=== PATIENT | male | born 1955 | race Caucasian/White ===

== ENCOUNTER 2017-06-27 23:43 | Emergency (ER) | payer MEDICARE, SELFPAY ==
[2017-06-27 23:44] VITALS: BP 143/79; PULSE 73; RESP 16; TEMP 36.7; O2SAT 99; BMI 28.6
--- NOTE | 2017-06-27 23:55 | EKG12_ITS ---
Test Reason : CP Blood Pressure : / mmHG Vent. Rate : 069 BPM Atrial Rate : 069 BPM P-R Int : 158 ms QRS Dur : 078 ms QT Int : 372 ms P-R-T Axes : 066 004 020 degrees QTc Int : 398 ms Normal sinus rhythm Normal ECG Confirmed by MARÍA OAKES, ELIZABETH ([id number]), editor house organ TRIXIE BAUTISTA ([id number] on 07/02/2017 2:48:03 PM Referred By: DR HAYS Confirmed By:ELIZABETH DANIEL MD
--- NOTE | 2017-06-27 23:55 | RAD_ITS ---
STUDY: X-RAY CHEST REASON FOR EXAM: Male, 61 years old. Chest pain. TECHNIQUE: Single AP portable view of the chest. COMPARISON: 03/11/2013. FINDINGS: The lungs are clear and expanded. There is no demonstrated pleural abnormality. Normal size heart. Normal mediastinum and bahman. Normal visualized pulmonary arteries. Normal visualized aortic arch and descending thoracic aorta. Normal visualized thoracic spine. Normal visualized ribs, clavicles, and shoulders. There is no demonstrated abnormality of the visualized soft tissue structures of the upper abdomen. RAD/Chest 1 View (Portable) IMPRESSION: Normal x-ray examination of the chest. Electronically Signed: Shahbaz Padilla MD at 0:44 EST Tel , Service support ,
[2017-06-28] MEDS: Aspirin 81 MG TAB.CHEW 324 MG PO (00:08)
[2017-06-28] MEDS: 0.9% Normal Saline 1,000 ML 150 ML IV (00:11)
[2017-06-28 00:12] LABS: Absolute Neutrophil Count 3.4 X10^3/uL (2.0-7.7); Basophil# 0.06 X10^3/uL; Basophil% 0.8 % (0-1); Eosinophil# 0.22 X10^3/uL; Hematocrit 42.2 % (40-54); Hemoglobin 14.7 g/dl (13.0-16.5); Lymphocyte % 39.5 % (19-41); Mean Corp Hgb Conc 34.8 g/gl (32-36); Mean Corpuscular Hgb 32.2 pg (27.0-32.0); Mean Corpuscular Volume 92.5 fL (80-94); Mean Platelet Vol. 9.7 fl (6.2-12.0); Monocyte# 0.72 X10^3/uL; Monocyte% 9.8 % (0-10); Neutrophil # 3.44 X10^3/uL (2.7-7.7); Neutrophil % 46.8 % (47-70); Platelet Count 259 K/mm3 (150-450); RBC Distribution Width CV 11.8 % (11.6-14.6); RBC Distribution Width SD 39.8 fl (35.1-43.9); Red Blood Count 4.56 M/mm3 (4.6-6.2); White Blood Count 7.4 K/mm3 (4.4-11.0)
[2017-06-28 00:13] VITALS: O2SAT 98
[2017-06-28 00:13] LABS: POSITIVE COUNT NO; POSITIVE DIFFERENTIAL NO; POSITIVE MORPHOLOGY NO
[2017-06-28 00:24] LABS: Anion Gap 6 (5-15); BUN 21 mg/dL (7-18); BUN/Creat Ratio 22.9 RATIO (10-20); Calcium,Total 8.4 mg/dL (8.5-10.1); Chloride 111 mmol/L (98-107); Creatinine, Serum 0.92 mg/dL (0.70-1.30); EST Glomerular Filtration Rate 88 mL/min (>60); Est Glom Filt Rate - Afr Amer 107 mL/min (>60); Estimated Creatinine Clearance 75.13 ml/min; Glucose 111 mg/dL (74-106); Potassium 4.1 mmol/L (3.5-5.1); Sodium Level 144 mmol/L (136-145)
[2017-06-28 00:25] LABS: D-Dimer Quantitative (DVT/PE) < 0.27 FEU/ug/m (0.27-0.49)
--- NOTE | 2017-06-28 00:56 | ED.DCSUM_ITS ---
- ER Visit Summary Date of Service: 06/28/17 Chief Complaint: Chest pain History of Present Illness: The patient is a 61 M who has not been feeling well for the last 1-1/2-2 weeks. He has had cough and congestion. Today he had chest pain all day, right midportion of his chest. Pain is worse with a deep breath. He is bringing up green sputum with his cough. He had recent fever but none today. Patient denies significant past cardiac history. He had a stress test approximately 2 years ago that was normal. Physical Examination: Vital signs are unremarkable. Patient is in no acute distress and speaking full sentences. Head neck examination is normal. Heart is regular rate and rhythm. Lung sounds are clear. He does have right mid chest wall tenderness. There is no crepitus. Abdomen is soft nontender. Lower extent examination was no calf tenderness or edema. Test Results: EKG is sinus at 69 with no sign of acute ischemia. Portable chest x-ray is normal. CBC and chemistry studies are grossly unremarkable. Troponin and d-dimer are both negative. Emergency Department Course and Treatment: Patient was given aspirin here while awaiting test results. On repeat evaluation he is resting comfortably. Had essentially 2 weeks of symptoms. He will be treated with a course of Zithromax. Treatment Plan: [] Disposition: Discharge Impression: 1. Bronchitis 2. Noncardiac chest pain This note was generated with [employer] dictation software. It may contain incorrect words, spelling, and punctuation that were not noted in review of the chart prior to signing ED Disposition - Plan for ED Patient: Disposition: Home or Assisted Living Chief Complaint: Chest Pain Instructions: Acute Bronchitis, ED Chest Pain NonCardiac Prescriptions: Azithromycin [Zithromax] 250 mg PO DAILY #4 tablet Referrals: Gerald Franklin MD [Primary Care Provider] - 1 Week if not improving
[2017-06-28 01:03] VITALS: BP 119/92; PULSE 71; RESP 15; O2SAT 99
[2017-06-28] MEDS: Azithromycin 250 MG Tablet 500 MG PO (01:06)
== END 2017-06-28 01:09 | disposition home or self-care (01) ==
PROVIDERS: Emergency Provider Emergency Medicine; Family Provider Family Medicine; PCP Family Medicine
DX: J40 Bronchitis, not specified as acute or chronic (principal); R07.89 Other chest pain; Z72.0 Tobacco use; F32.9 Major depressive disorder, single episode, unspecified
CPT/HCPCS: 71045; 80048; 84484; 85025; 85379; 93005; 96360; 99285; J7030

== ENCOUNTER 2018-05-04 18:10 | Emergency (ER) | payer MEDICARE, SELFPAY ==
[2018-05-04 18:11] VITALS: BP 146/81; PULSE 96; RESP 16; TEMP 36.2; O2SAT 100; BMI 25.9
--- NOTE | 2018-05-04 19:52 | ED.VISSUMM ---
- ER Visit Summary Date of Service: 05/04/18 Chief Complaint: Back pain and right shoulder pain History of Present Illness: The patient is a 62 M with just over 1 week history of low back pain and right shoulder pain. He was seen in [place] emergency room on April 26 and given prednisone and [place]. He saw Dr. Franklin or someone in his office on April 30 for follow-up. He is given prescription for naproxen and along with gabapentin. Patient reports no significant relief. He believes he has a torn rotator cuff in the right shoulder is requesting referral to an orthopedic physician. Physical Examination: Vital signs unremarkable. Patient sitting in bedside chair no acute distress. Head and neck examination is unremarkable. Heart is regular rate and rhythm. Lung sounds are clear. Abdomen is soft and nontender. Back examination reveals focal tenderness over the lower cervical paraspinals and across the right scapula. He also has reproducible tenderness in the lumbar bilateral paraspinal muscles. Neuro exam is unremarkable with good range of motion throughout. Test Results: [] Emergency Department Course and Treatment: X-rays reports were able to be reviewed from [place]. Patient will be given prednisone with a longer taper. He will be given a home pack of [place] tonight as he did drive himself to the emergency room. He can contact his primary care physician tomorrow morning for further pain medication. He will be referred to Dr. Iggy Hines, on-call for orthopedics for follow-up as well. Treatment Plan: [] Disposition: Discharge Impression: 1. Cervical radiculopathy 2. Lumbar paraspinal strain This note was generated with [employer] dictation software. It may contain incorrect words, spelling, and punctuation that were not noted in review of the chart prior to signing ED Disposition - Plan for ED Patient: Chief Complaint: Back Referrals: Gerald Franklin MD [Primary Care Provider] -
--- NOTE | 2018-05-04 19:54 | ED.DEP ---
ED Disposition - Plan for ED Patient: Disposition: Home or Assisted Living Chief Complaint: Back Instructions: ED Neck Back Pain General Prescriptions: Prednisone 10 mg PO DAILY #63 tablet Referrals: Gerald Franklin MD [Primary Care Provider] - As soon as possible Iggy Hines MD [STAFF PHYSICIAN] - As soon as possible
[2018-05-04] MEDS: HYDROcodone Bitartrate/Apap 5/325 Tablet PO (20:10)
[2018-05-04 20:12] VITALS: BP 142/80; PULSE 84; RESP 16; O2SAT 96
== END 2018-05-04 20:13 | disposition home or self-care (01) ==
PROVIDERS: Emergency Provider Emergency Medicine; Family Provider Family Medicine; PCP Family Medicine
DX: M54.12 Radiculopathy, cervical region (principal); S39.012A Strain of muscle, fascia and tendon of lower back, initial encounter; X58.XXXA Exposure to other specified factors, initial encounter; Y93.9 Activity, unspecified; Y92.9 Unspecified place or not applicable; Y99.9 Unspecified external cause status; Z72.0 Tobacco use; Z86.73 Personal history of transient ischemic attack (TIA), and cerebral infarction without residual deficits; Z87.442 Personal history of urinary calculi
CPT/HCPCS: 99282

== ENCOUNTER 2023-06-24 13:31 | Emergency (ER) | payer MEDICARE, SELFPAY ==
[2023-06-24 13:33] VITALS: BP 140/111; PULSE 115; RESP 18; TEMP 36.4; O2SAT 100; BMI 23.8
--- NOTE | 2023-06-24 15:22 | CT_ITS ---
EXAM: CT CERVICAL SPINE WITHOUT INTRAVENOUS CONTRAST CLINICAL INDICATION: chronic pain TECHNIQUE: Helically acquired images were obtained of the cervical spine without intravenous contrast. 2D reformatted images were reviewed. This CT exam was performed using one or more of the following dose reduction techniques: automated exposure control, adjustment of the mA and/or kV according to patient size, and/or use of iterative reconstruction technique. COMPARISON: No relevant prior studies available. FINDINGS: VERTEBRAE: See below. DISCS/SPINAL CANAL/NEURAL FORAMINA: There is disc space narrowing at C5-6. There is bilateral bony neural foraminal narrowing at C5-6. There is bilateral bony neural foraminal narrowing at C6-7. SOFT TISSUES: Unremarkable. No prevertebral soft tissue swelling. LYMPH NODES: Unremarkable. No cervical adenopathy. LUNG APICES: Unremarkable as visualized. Clear. CT/Spine Cervical without Contras IMPRESSION: 1. No acute osseous abnormalities of the cervical spine. 2. Degenerative changes with disc space narrowing and bony neural foraminal narrowing in the lower cervical spine. If indicated further evaluation with MRI may be beneficial. Electronically Signed: Tremaine Gonzalez MD at 16:13 EST ,
--- NOTE | 2023-06-24 15:23 | ED.VIS.BACK ---
HPI History of Present Illness Chief Complaint: Other, Pain/Inj Narrative Narrative: 67-year-old male past medical history of chronic neck pain states he has been seen by pain management at the [facility] and is going through hoops to get injections into his neck. He states he saw his management psychologist today, and someone told him that he should come to the emergency department because of his chronic neck pain. He states that he has had pain for over 2 years. He denies any fevers or chills. He gets pain radiating down both arms, and sometimes his fingertips go numb. This is typical of his chronic neck pain. States he is having problems with his memory as well, and cannot remember what he takes for pain, but thinks that some sort of muscle relaxer . PFSH PFSH Home Medications prednisone 10 mg tablet 10 mg PO DAILY #63 tabs 05/04/18 [Rx Last Taken Unknown] Allergy/AdvReac Type Severity Reaction Status Date / Time No Known Allergies Allergy Verified 06/24/23 13:32 Social History Smoking Status: Current every day smoker tobacco type: cigarettes ROS ROS ED ROS Narrative Constitutional: No fever, no chills. HEENT: No sore throat. Positive chronic neck pain. No loss of vision. No rhinorrhea. Cardiovascular: No chest pain. No palpitations. No pedal edema. Respiratory: No cough, no shortness of breath. Abdominal: No abdominal pain. No nausea. No vomiting. Genitourinary: No dysuria. No hematuria. Musculoskeletal: No myalgias. No arthralgias. Neurologic: No headaches. No dizziness. No lightheadedness. Intermittent numbness of bilateral fingers. Skin: No rash. No change in color. Psychiatric: No depression. No anxiety. EXAM Physical Exam Narrative Exam Narrative: Afebrile. Vital signs noted. HEENT: Normocephalic. Atraumatic. PERRL, EOMI. Neck soft and supple. No point tenderness or step off. Cardiovascular: Regular rate and rhythm. No murmurs, rubs, or gallops appreciated. Respiratory: No tachypnea. Lungs clear to auscultation bilaterally. Gastrointestinal: Abdomen soft, nontender, with normoactive bowel sounds. No rebound or guarding. Neurological: Awake. Alert. Nonfocal, nonlateralizing. Able to raise arms above head without difficulty. Skin: No rash. Normal color. No pallor. Musculoskeletal: No pedal edema. Full range of motion extremities. Palpable radial pulses bilaterally. Const Vital Signs: 06/24/23 13:33 06/24/23 16:11 Temperature 97.5 F L Temperature Source Temporal Pulse Rate 115 H 67 Respiratory Rate 18 16 Blood Pressure 140/111 H 150/78 H Blood Pressure Mean 120 102 Pulse Ox 100 100 Oxygen Delivery Method Room Air MDM MDM MDM Narrative Medical decision making narrative: I reviewed the patient's prior records. He has a longstanding history of chronic neck and low back pain. He has with him a piece of paper from pain management telling him to bring his records and any imaging of his neck for injections, and there is also a pulmonology appointment reportedly scheduled. I think that is where he was today. He states he was told by the RN at the management psychologist office that they thought he should come to the emergency department because he was having exacerbation of his chronic numbness. I do not feel that the patient's symptoms are strokelike, nor do I feel that he requires an emergent MRI. These are all longstanding problems. I did discuss with him reimaging his neck with CT as he states that has not happened for years. I reviewed the CT imaging of the cervical spine, and the radiology report which shows no acute osseous abnormalities or fracture, there are degenerative changes and disc space narrowing and bony neural foraminal narrowing in the lower cervical spine. I do not feel that he requires emergent MRI at this time. Additionally, I do not feel that narcotic pain medications are indicated as he is enrolled in pain management and he states he is supposed to have injections next week. He will be given a copy of his imaging to take with him to the pain management physician. Patient became upset, and left his room but waited in the waiting room for his disc and discharge papers. Disposition is discharged home in stable condition. Radiography Diagnostic Testing: Clinical Impression(s) from Imaging Studies Cervical Spine CT 06/24/23 15:22 IMPRESSION: 1. No acute osseous abnormalities of the cervical spine. 2. Degenerative changes with disc space narrowing and bony neural foraminal narrowing in the lower cervical spine. If indicated further evaluation with MRI may be beneficial. Electronically Signed: Tremaine Gonzalez MD at 16:13 EST , Discharge Plan Triage Chief Complaint: Other, Pain/Inj Other Complaint: Back ED Provider: Doroteo Calloway Dx/Rx/DC Orders Clinical Impression: Degenerative joint disease of cervical spine, Chronic neck pain Instructions: ED Chronic Pain, ED Radiculopathy, Cervical Prescriptions: No Action prednisone 10 MG tablet 10 mg PO DAILY Qty: 63 0RF Rx Instructions: 60 mg p.o. daily ?3 days, 50 mg p.o. daily ?3 days, 40 mg p.o. daily ?3 days, 30 mg p.o. daily ?3 days, 20 mg p.o. daily ?3 days, 10 mg p.o. daily ?3 days. Primary Care Provider: Gerald Franklin Referrals: Gerald Franklin MD [Primary Care Provider] - As soon as possible Activity Restrictions/Additional Instructions: Follow-up with your pain management physician next week for the injections in your neck. Take the disc of your imaging/CT of your cervical spine with you. Disposition Disposition: Home, Self Care
[2023-06-24 16:11] VITALS: BP 150/78; PULSE 67; RESP 16; O2SAT 100
[2023-06-24 17:05] VITALS: BP 150/78; PULSE 67; RESP 16; TEMP 36.6; O2SAT 100
== END 2023-06-24 17:07 | disposition home or self-care (01) ==
PROVIDERS: Emergency Provider Emergency Medicine; PCP Family Medicine; Visit Provider Emergency Medicine
DX: M47.812 Spondylosis without myelopathy or radiculopathy, cervical region (principal); G89.29 Other chronic pain; M54.50 Low back pain, unspecified; M79.601 Pain in right arm; M79.602 Pain in left arm; F17.210 Nicotine dependence, cigarettes, uncomplicated
CPT/HCPCS: 72125; 99283

== ENCOUNTER → 2024-03-17 | Outpatient (CLI) | payer MEDICARE, SELFPAY ==
[2024-03-17 10:32] VITALS: BP 96/60; PULSE 64; O2SAT 100; BMI 23.8
[2024-03-17 11:00] VITALS: BMI 23.8
== END | disposition home or self-care (01) ==
PROVIDERS: PCP Family Medicine
DX: Z95.5 Presence of coronary angioplasty implant and graft (principal)

== ENCOUNTER 2024-06-23 10:11 | Emergency (ER) | payer MEDICARE, SELFPAY ==
[2024-03-17 11:00] VITALS: BMI 23.8
[2024-06-23 10:12] VITALS: BP 149/87; PULSE 100; RESP 14; TEMP 36.6; O2SAT 100; BMI 22.8
--- NOTE | 2024-06-23 10:19 | RAD_ITS ---
PROCEDURE: CHEST 1 VIEW (PORTABLE) REASON FOR EXAM: Chest pain and back pain. TECHNIQUE: Frontal view of the chest. COMPARISON: Comparison is made with prior study dated June 28, 2017. FINDINGS: EKG electrodes are seen. The heart size is normal. Hyperinflation and COPD. The lungs are clear. RAD/Chest 1 View (Portable) IMPRESSION: Hyperinflation and COPD. Reading Location: [facility]
--- NOTE | 2024-06-23 10:20 | EDS_ITS ---
HPI History of Present Illness Chief Complaint: Chest Pain Detail of Chief Complaint: Chest pain Informant: patient Narrative Narrative: Patient presents to the emergency department complaint of chest and back pain that started this morning. Patient states that he had a heart attack in February and to make sure that he was okay. Patient states that really does not have much in the way of chest discomfort but intermittently will have pain in both shoulder blades. Patient states is not as bad as when he had his heart attack in February of last year. Discomfort lasts a minute or 2 and then goes away. He denies exertional dyspnea. He also complains of low back pain that seems positional and has had similar about twice a year. Denies pain rating down his legs. Denies injury to his back. Denies significant shortness of mikayla th. Denies fever. He denies urinary symptoms PFSH [facility] Medical History Mixed hyperlipidemia Heart failure with reduced ejection fraction Silent ST elevation myocardial infarction (STEMI) Hypothyroid Fatigue Erectile dysfunction Anxiety CHF (congestive heart failure) Old ME (myocardial infarction) (12/31/23) Arthritis Chronic neck pain Atypical chest pain History of tobacco abuse Depression Home Medications ?Medication ?Instructions ?Recorded ?Last Taken ?Type albuterol sulfate 90 mcg/actuation 2 puff inhalation Q 6H PRN 05/28/24 Unknown History aerosol inhaler aspirin 81 mg tablet,delayed 81 mg PO QDAY 05/28/24 Un known History release (Adult Aspirin Regimen) atorvastatin 40 mg tablet 40 mg PO QDAY 05/28/24 Unkno wn History losartan 25 mg tablet 25 mg PO QDAY 05/28/24 Unkno wn History metoprolol tartrate 25 mg tablet 25 mg PO QDAY 5 Unknown History ticagrelor 90 mg tablet (Brilinta) 90 mg PO BID Unknown History sildenafil 100 mg tablet 100 mg PO PRN 06/03/24 Unkno wn History cyclobenzaprine 10 mg tablet 10 mg PO TID PRN Muscle S pasm #20 06/23/24 Unknown Rx TABLETS hydrocodone-acetaminophen 5-325mg 1 tab PO Q4H PRN PRN Pain 2 days 06/23/24 Unknown Rx 5mg-325mg #10 TABLETS Allergy/AdvReac Type Severity Reaction Status Date / Time No Known Allergies Allergy Verified 06/23/24 10:14 Family History Father Diabetes Hypertension Surgical History History of surgery on wrist Social History Smoking Status: Current every day smoker tobacco type: cigarettes alcohol intake: current alcohol intake frequency: holidays/special occasions only substance use type: marijuana and other details: Patient states every day, all day long ROS ROS ED Review of Systems ROS Unobtainable: other Constitutional Constitutional ED: Reports lethargy; Denies chills, fever(s), sweats or weight loss Eyes Eyes: Denies blurry vision, change in vision or diplopia ENT ENT ED: Denies rhinorrhea or sore throat Cardiovascular Cardiovascular: Reports chest pain; Denies orthopnea or racing heartbeat Respiratory/Chest Respiratory/Chest: Denies cough, dyspnea, dyspnea on exertion, orthopnea or sputum Gastrointestinal Gastrointestinal: Denies abdominal pain, diarrhea, nausea or vomiting Genitourinary Genitourinary ED: Denies dysuria, hematuria or urinary frequency Musculoskeletal Musculoskeletal: Reports back pain; Denies arthralgias, myalgias or neck pain Integumentary Denies abscess, Abrasions or rash Neurologic Neurologic: Denies headache(s) or weakness Psychiatric Psychiatric: Denies anxiety, depression or suicidal thoughts Endocrine Endocrinology: Denies polydipsia, polyphagia or polyuria Hematologic/Lymphatic Hematologic/Lymphatic: Denies easy bleeding, easy bruising or lymphadenopathy Allergic/Immunologic Allergic/Immunologic ED: Denies mouth swelling, tongue swelling or urticaria EXAM Physical Exam Const Vital Signs: 06/23/24 10:12 06/23/24 10:33 06/23/24 11:11 Temperature 98 F Temperature Source Oral Pulse Rate 100 62 Respiratory Rate 14 16 Blood Pressure 149/87 H 130/90 H Blood Pressure Mean 107 103 Pulse Ox 100 99 Oxygen Delivery Method Room Air Room Air 06/23/24 11:51 Temperature 97.9 F Temperature Source Pulse Rate 68 Respiratory Rate 14 Blood Pressure 122/83 H Blood Pressure Mean 96 Pulse Ox 99 Oxygen Delivery Method Positive well nourished and well developed General Appearance ED: well developed and NAD HEENT Reports TM's clear and moist mucous membranes normocephalic and atraumatic; Negative for trauma or tenderness Tympanic Membrane ED: Yes TM's clear Eyes PERRL and EOMs intact bilaterally General Eye ED: Negative for pale conjunctiva or scleral icterus Neck no lymphadenopathy, supple and no JVD General: Negative for tenderness Chest Wall inspection of chest normal and palpation of chest normal Chest: Negative for tenderness Resp normal respiratory effort and clear to auscultation bilaterally Effort and Inspection: Negative for respiratory distress or pain with movement Auscultation: Negative for rhonchi, wheezes or diminished lung sounds Cardio regular rate, regular rhythm, S1 normal heart sound, S2 normal heart sound and no murmurs Peripheral Pulses: pulses 2+ throughout GI normal to inspection, nondistended, normoactive bowel sounds, soft to palpation, non-tender, non-distended and no masses Back/Spine no CVA tenderness and no thoracic nor lumbar tenderness Extremity normal to inspection General Extremety ED: Negative for edema General Extremity: Negative for edema Neuro oriented x3, CN's II-XII intact bilaterally, no sensory deficits noted and gait normal Sensorium / Orientation: awake, alert, oriented to person, oriented to place and oriented to time Motor Exam: strength 5/5 throughout and strength abnormal Psych mental status grossly normal Skin no rashes or lesions noted and no wounds MDM MDM MDM Narrative Medical decision making narrative: Patient presents with complaint of pain in his back. He had recent ME and February of last year with stent at [facility]. He thinks this pain is different and thinks may be related to his back but is not sure and wanted to have his heart checked. Patient had similar back pain in the past and happens about twice a year. He denies any pain rating down his legs and has no radiculopathic signs or symptoms. EKG obtained on arrival showed a sinus rhythm with a rate of 96 bpm with occasional PVCs. CBC with differential showing a 6.6 with hemoglobin 14.6 and platelet count of 255. D-dimer was normal less than 0.27. Troponin was normal at 11. Chemistries are pending. Lab switching to a new analyzer and results have been delayed today. I did order delta troponins for the patient however he feeling improved after being treated with morphine and Zofran for his back pain. He is adamant that this is all just related to back pain and he jumped the gun because he was nervous about his heart. He does not want to wait for delta troponin results. He understand I cannot rule out acute coronary syndrome without further testing. Patient states that he is not concerned and feels well and wants to go home. Shared medical decision making. Patient has capacity to make this decision. I explained to him my concerns. He is comfortable going home. Lab Data Attestation: I reviewed the patient's lab results. Labs: Laboratory Results - last 24 hr 06/23/24 10:20 WBC 6.6 RBC 4.57 L Hgb 14.6 Hct 42.9 MCV 93.9 MCH 31.9 MCHC 34.0 RDW Std Deviation 42.7 RDW Coeff of Eriberto 12.3 Plt Count 255 MPV 9.2 Immature Gran % (Auto) 0.300 Neut % (Auto) 64.9 Lymph % (Auto) 24.0 Powell % (Auto) 8.8 Eos % (Auto) 0.9 Baso % (Auto) 1.1 H Absolute Neuts (auto) 4.3 Absolute Lymphs (auto) 1.59 Nucleated RBC % 0 D-Dimer Quant (PE/DVT) < 0.27 L BUN 15 Creatinine 1.0 Est GFR (MDRD) Non-Af 86 BUN/Creatinine Ratio 15.7 Glucose 115 H Troponin T High Sens 11 Radiography Diagnostic Testing: Clinical Impression(s) from Imaging Studies Chest X-Ray 06/23/24 10:19 IMPRESSION: Hyperinflation and COPD. Reading Location: [facility] 1 view chest x-ray obtained interpreted by myself as no evidence of infiltrate or pneumothorax or acute disease process. Radiology felt there was hyperinflation COPD EKG Initial EKG: Attestation: I personally reviewed and interpreted this EKG as follows: Comments: Sinus rhythm with rate of 96 bpm with PVCs and old inferior in farct Discharge Plan Triage Chief Complaint: Chest Pain ED Provider: Charly Aragon Dx/Rx/DC Orders Clinical Impression: Back pain, Chest pain Instructions: ED Back Pain (Acute or Chronic), ED Chest Pain, Uncertain Cause Prescriptions: New cyclobenzaprine 10 mg tablet 10 mg PO TID PRN (Reason: Muscle Spasm) Qty: 20 0RF hydrocodone-acetaminophen 5-325 mg tablet 1 tab PO Q4H PRN PRN (Reason: Pain) 2 Days Qty: 10 0RF No Action aspirin [Adult Aspirin Regimen] 81 mg tablet,delayed release (DR/EC) 81 mg PO QDAY atorvastatin 40 mg tablet 40 mg PO QDAY losartan 25 mg tablet 25 mg PO QDAY metoprolol tartrate 25 mg tablet 25 mg PO QDAY Brilinta 90 mg tablet 90 mg PO BID albuterol sulfate 90 mcg/actuation HFA aerosol inhaler 2 puff inhalation Q6H PRN sildenafil 100 mg tablet 100 mg PO PRN Patient Comments: TAKE 1 TABLET BY MOUTH EVERY DAY NEEDED Primary Care Provider: Gerald Franklin Referrals: Gerald Franklin MD [Primary Care Provider] - 3-5 Days Print Language: Czech Disposition Disposition: Home, Self Care
--- NOTE | 2024-06-23 10:30 | EKG12_ITS ---
Test Reason : CP Blood Pressure : */* mmHG Vent. Rate : 96 BPM Atrial Rate : 96 BPM P-R Int : 168 ms QRS Dur : 86 ms QT Int : 344 ms P-R-T Axes : 77 -13 75 degrees QTcB Int : 434 ms Sinus rhythm with frequent Premature ventricular complexes Inferior infarct , age undetermined Abnormal ECG Confirmed by Wes Ignacio ([id number]), electronic news gathering editor STEVEN PARDO ([id number]) on 06/24/2024 8:19:51 AM Referred By: Confirmed By: Wes Ignacio
[2024-06-23 10:33] LABS: Absolute Lymphocyte Count 1.59 X10^3/uL (0.83-4.51); Absolute Neutrophil Count 4.3 X10^3/uL (2.0-7.7); Basophil# 0.07 X10^3/uL; Basophil% 1.1 % (0-1); Eosinophil# 0.06 X10^3/uL; Eosinophils% 0.9 % (0-5); Hematocrit 42.9 % (40-54); Hemoglobin 14.6 g/dL (13.0-16.5); Lymphocyte # 1.59 X10^3/ul (0.83-4.51); Mean Corpuscular Hgb 31.9 pg (27.0-32.0); Mean Corpuscular Volume 93.9 fL (80-94); Mean Platelet Vol. 9.2 fl (6.2-12.0); Monocyte# 0.58 X10^3/uL; Monocyte% 8.8 % (0-10); NRBC Flagged by Analyzer 0 % (0-5); Neutrophil % 64.9 % (47-70); Platelet Count 255 K/mm3 (150-450); RBC Distribution Width CV 12.3 % (11.6-14.6); RBC Distribution Width SD 42.7 fl (35.1-43.9); Red Blood Count 4.57 M/mm3 (4.6-6.2); White Blood Count 6.6 K/mm3 (4.4-11.0)
[2024-06-23] MEDS: Aspirin 81 MG TAB.CHEW 324 MG PO (10:37)
[2024-06-23 10:44] LABS: D-Dimer Quantitative (DVT/PE) < 0.27 FEU/ug/m (0.27-0.49)
[2024-06-23 10:55] LABS: BUN 15 mg/dL (4-19); BUN/Creat Ratio 15.7 RATIO (10-20); EST Glomerular Filtration Rate 86 (>60); Glucose 115 mg/dL (70-99); Troponin T High Sensitivity 11 ng/L (<=22)
[2024-06-23] MEDS: Morphine 4 MG/ML Syringe IV (11:08)
[2024-06-23] MEDS: Ondansetron 4 MG/2 ML Vial IV (11:08)
[2024-06-23 11:11] VITALS: BP 130/90; PULSE 62; RESP 16; O2SAT 99
[2024-06-23 11:51] VITALS: BP 122/83; PULSE 68; RESP 14; TEMP 36.6; O2SAT 99
[2024-06-23 14:30] LABS: Calcium,Total 9.4 mg/dL (7.6-11.0); Potassium 3.8 mmol/L (3.5-5.1); Sodium Level 141 mmol/L (136-145)
[2024-06-23 14:31] LABS: Anion Gap 14 (5-15); Carbon Dioxide 19.3 mmol/L (21.0-32.0); Chloride 108 mmol/L (98-107)
== END 2024-06-23 12:17 | disposition home or self-care (01) ==
PROVIDERS: Emergency Provider Emergency Medicine; PCP Family Medicine; Visit Provider Emergency Medicine
DX: M54.9 Dorsalgia, unspecified (principal); I50.22 Chronic systolic (congestive) heart failure; R07.9 Chest pain, unspecified; E78.2 Mixed hyperlipidemia; E03.9 Hypothyroidism, unspecified; I49.3 Ventricular premature depolarization; F32.A Depression, unspecified; I25.2 Old myocardial infarction; F17.210 Nicotine dependence, cigarettes, uncomplicated; Z79.82 Long term (current) use of aspirin; Z79.02 Long term (current) use of antithrombotics/antiplatelets; Z79.899 Other long term (current) drug therapy; Z95.5 Presence of coronary angioplasty implant and graft
CPT/HCPCS: 71045; 80048; 84484; 85025; 85379; 93005; 96374; 96375; 99284; A4216; J2405